=== PATIENT | female | born 1995 | race Hispanic/Latino ===

== ENCOUNTER 2018-10-23 19:28 | Inpatient (IN) | payer SELFPAY, OTHER | END 2018-10-26 18:08 | disposition home or self-care (01) | LOC: EDH 19:28 → EDHIP 19:29 → 4AH 23:31 | DX: A41.9 Sepsis, unspecified organism (principal); N39.0 Urinary tract infection, site not specified; K52.9 Noninfective gastroenteritis and colitis, unspecified ==